=== PATIENT | female | born 1985 | race American Indian/Alaskan Native ===

== ENCOUNTER 2018-04-06 22:52 | Inpatient (IN) | payer MEDICAID ==
[2018-04-06] MEDS ORDERED: Albuterol-Ipratrop 3 mg / 0.5 (3 ml) UD INH STA ×3 (23:00→23:01)
[2018-04-06 23:30] LABS: BASO # 0.1 K/uL (0.0-0.2); BASO % 0.8 % (0.0-2.0); EOS % 0.4 % (0.0-4.0); HEMOGLOBIN 13.1 g/dL (12.0-16.0); LYMPH # 2.4 K/uL (1.0-4.3); LYMPH % 33.9 % (20.0-40.0); MEAN CELL VOLUME 83.7 fl (81.0-99.0); MEAN CORPUSCULAR HEMOGLOBIN 27.7 pg (27.0-31.0); MEAN CORPUSCULAR HGB CONC 33.1 g/dL (33.0-37.0); MEAN PLATELET VOLUME 6.9 fl (7.2-11.7); MONO # 0.1 K/uL (0.0-0.8); MONO % 1.8 % (0.0-10.0); NEUT # 4.4 K/uL (1.8-7.0); NEUT % 63.1 % (50.0-75.0); NRBC % 0.1 % (0.0-0.0); RBC 4.72 Mil/uL (3.80-5.20); RED CELL DISTRIBUTION WIDTH 16.2 % (11.5-14.5)
--- NOTE | 2018-04-06 23:43 | ED PDOC ---
HPI: SOB/CHF/COPD Time Seen by Provider: 04/06/18 23:30 Chief Complaint (Nursing): Respiratory Distress Chief Complaint (Provider): Respiratory Distress History Per: Patient History/Exam Limitations: no limitations Onset/Duration Of Symptoms: Days (x2) Current Symptoms Are (Timing): Still Present Additional Complaint(s): 32 year old female with a past medical history of asthma presents to the ED complaining of cough, productive with clear sputum associated with post-tussive vomiting and chest tightness that acutely worsened today after smelling cleaning fluid nearby, onset two days ago. Patient reports similar symptoms to asthma exacerbation she's had in the past. Denies fever and chills. PMD: Does not recall Past Medical History Reviewed: Historical Data, Nursing Documentation, Vital Signs Vital Signs: Last Vital Signs Temp 97.4 F L 04/09/18 15:51 Pulse 84 04/09/18 15:51 Resp 20 04/09/18 15:51 BP 106/72 04/09/18 15:51 Pulse Ox 98 04/09/18 15:51 - Medical History PMH: Asthma - Surgical History Surgical History: No Surg Hx - Family History Family History: States: Diabetes Other Family History: Cancer - Social History Current smoker - smoking cessation education provided: Yes - Home Medications Home Medications: Ambulatory Orders Medication Instructions Recorded Albuterol 0.083% [Albuterol 0.083% 04/07/18 Inhal Nadine (2.5 mg/3 ml) UD] - Allergies Allergies/Adverse Reactions: Allergies Allergy/AdvReac Type Severity Reaction Status Date / Time No Known Allergies Allergy Verified 04/06/18 22:56 Review of Systems ROS Statement: Except As Marked, All Systems Reviewed And Found Negative (as per HPI) Constitutional: Negative for: Fever, Chills Cardiovascular: Positive for: Chest Pain ("tightness" ) Respiratory: Positive for: Cough (productive with clear sputum ) Gastrointestinal: Positive for: Vomiting (post-tussive) Physical Exam - Reviewed Nursing Documentation Reviewed: Yes Vital Signs Reviewed: Yes - Physical Exam Appears: Positive for: Non-toxic, In Acute Distress Head Exam: Positive for: ATRAUMATIC, NORMOCEPHALIC Skin: Positive for: Warm, Dry Eye Exam: Positive for: EOMI, PERRL ENT: Positive for: Pharynx Is (clear). Negative for: Pharyngeal Erythema, Tonsillar Exudate Neck: Positive for: Painless ROM, Supple Cardiovascular/Chest: Positive for: Regular Rate, Rhythm. Negative for: Murmur Respiratory: Positive for: Accessory Muscle Use, Wheezing (scattered), Respiratory Distress (acute), Other (poor air movement). Negative for: Rales, Rhonchi Gastrointestinal/Abdominal: Positive for: Soft. Negative for: Tenderness Back: Positive for: Normal Inspection. Negative for: Decreased ROM Extremity: Positive for: Normal ROM. Negative for: Deformity Lymphatic: Negative for: Adenopathy Neurologic/Psych: Positive for: Alert. Negative for: Motor/Sensory Deficits - Laboratory Results Result Diagrams: 04/09/18 05:20 04/09/18 05:20 - ECG O2 Sat by Pulse Oximetry: 100 (RA) Pulse Ox Interpretation: Normal Medical Decision Making Medical Decision Making: Time: 2326 Impression: Asthma Exacerbation Differentials include but not limited to bronchitis and pneumonia. Plan: -- EKG -- CMP -- Magnesium -- Phosphorus -- ED Urine Dipstick -- ED Urine -- CBC with differentials -- CXR Portable -- Blood Culture -- Lumber Stacker Driver -- IV Insertion Time: 0000 -- Patient endorsed to Dr. Alcala, pending x-ray and re-evaluation. Scribe Attestation: Documented by Guy Deutsch acting as a scribe for Dr. Brenda Younger. Provider Scribe Attestation: All medical record entries made by the Scribe were at my direction and personally dictated by me. I have reviewed the chart and agree that the record accurately reflects my personal performance of the history, physical exam, medical decision making, and the department course for this patient. I have also personally directed, reviewed, and agree with the discharge instructions and disposition. Disposition - Clinical Impression Clinical Impression: Dyspnea - Patient ED Disposition Is Patient to be Admitted: Transfer of Care - Disposition Disposition: Transfer of Care Disposition Time: 00:00 Condition: FAIR Patient Signed Over To: Ben Alcala
[2018-04-06 23:44] LABS: ALB/GLOB RATIO 1.3 (1.0-2.1); ALBUMIN 4.2 g/dL (3.5-5.0); ALT/SGPT 28 U/L (9-52); AST/SGOT 22 U/L (14-36); BLOOD UREA NITROGEN 8 mg/dl (7-17); GFR AFRICAN-AMERICAN > 60; GFR NON-AFRICAN AMERICAN > 60
--- NOTE | 2018-04-07 00:19 | ED PDOC ---
- Laboratory Results Result Diagrams: 04/06/18 23:27 04/06/18 23:27 - ECG O2 Sat by Pulse Oximetry: 100 (RA) Medical Decision Making Medical Decision Making: Time: 0000 -- Patient endorsed to me by Dr. Younger, pending x-ray and re-evaluation. Time: 201 XR RESULTS FINDINGS: Lungs: Bilateral hazy airspace infiltrates, most confluent and dense in the left mid lung zone and at the right lung base. Pleural space: Unremarkable. No pneumothorax. No significant pleural effusions. Heart: Unremarkable. No cardiomegaly. Mediastinum: Unremarkable. Bones/joints: Unremarkable. Other findings: The patient is large in size.Prominent breast shadows. IMPRESSION: Bilateral hazy airspace infiltrates, compatible with multilobar infectious pneumonia, eg. Clinical correlation and close follow-up suggested. No significant pleural effusions. Thank you for allowing us to participate in the care of your patient. Dictated and Authenticated by: La Nena Nunez MD 04/07/2018 2:02 AM Eastern Time ([place] & [place]) Time:201 --X-ray results showed bilateral infiltrates. FINDINGS: Lungs: Bilateral hazy airspace infiltrates, most confluent and dense in the left mid lung zone and at the right lung base. Pleural space: Unremarkable. No pneumothorax. No significant pleural effusions. Heart: Unremarkable. No cardiomegaly. Mediastinum: Unremarkable. Bones/joints: Unremarkable. Other findings: The patient is large in size.Prominent breast shadows. IMPRESSION: Bilateral hazy airspace infiltrates, compatible with multilobar infectious pneumonia, eg. Clinical correlation and close follow-up suggested. No significant pleural effusions. Thank you for allowing us to participate in the care of your patient. Dictated and Authenticated by: La Nena Nunez MD 04/07/2018 2:02 AM Eastern Time ([place] & [place]) -- Patient will be admitted for community acquired pneumonia. -- Case referred with Dr. Alonso -- Azithromycin and rocephin administered/ -- Condition is fair. Scribe Attestation: Documented by Guy Deutsch acting as a scribe for Dr. Ben Alcala MD. Provider Scribe Attestation: All medical record entries made by the Scribe were at my direction and personally dictated by me. I have reviewed the chart and agree that the record accurately reflects my personal performance of the history, physical exam, medical decision making, and the department course for this patient. I have also personally directed, reviewed, and agree with the discharge instructions and disposition. Disposition Discussed With : Duncan Alonso - Clinical Impression Clinical Impression: Pneumonia - POA Present On Arrival: None - Disposition Disposition: Admitted as In-Patient Disposition Time: 02:02 Condition: FAIR
[2018-04-07] MEDS ORDERED: Azithromycin 500 MG in Sodium Chloride 0.9% 250 ML IVPB STA (01:03)
[2018-04-07] MEDS ORDERED: cefTRIAXone (Rocephin) 1 gm Inj ONE (01:31)
[2018-04-07] MEDS ORDERED: Azithromycin 500 MG IV IVPB ONE ×2 (01:31→02:40)
[2018-04-07] MEDS ORDERED: Sodium Chloride 3% for Inhalation 4 ML VIAL.NEB IH PRN (07:33)
--- NOTE | 2018-04-07 07:36 | RAD ---
HISTORY: sob COMPARISON: No prior. FINDINGS: LUNGS: Bilateral interstitial infiltrates. PLEURA: No significant pleural effusion identified, no pneumothorax apparent. CARDIOVASCULAR: Normal. OSSEOUS STRUCTURES: No significant abnormalities. VISUALIZED UPPER ABDOMEN: Normal. OTHER FINDINGS: None. IMPRESSION: Bilateral interstitial infiltrates.
[2018-04-07] MEDS: Albuterol-Ipratrop 3 mg / 0.5 (3 ml) UD INH SCH ×3 (07:55→19:14)
[2018-04-07] MEDS: Enoxaparin 40 mg Syringe SC SCH (09:00)
[2018-04-07] MEDS ORDERED: Pneumococcal 23-Valent Vaccine IM ONE (09:00)
[2018-04-07] MEDS ORDERED: Enoxaparin 30 mg Syringe SC SCH (09:00)
[2018-04-07] MEDS: Azithromycin 500 MG in Sodium Chloride 0.9% 250 ML IVPB SCH (09:05)
--- NOTE | 2018-04-07 13:04 | CARD ---
APPROVED REPORT EKG Measurement Heart [id number] IN [id number] <Conclusion> Sinus tachycardia Otherwise normal ECG
--- NOTE | 2018-04-07 18:00 | HP ---
CHIEF COMPLAINT: Difficulty breathing. HISTORY OF PRESENT ILLNESS: This is a 32-year-old female, known case of asthma, who was having cough with clear sputum production for few days, which also associated with episodes of vomiting and chest tightness, which got worse yesterday. So the patient was brought to the emergency room and was admitted for further management. REVIEW OF SYSTEMS: More positive for feeling weak, tired, fatigued, malaise, and coughing. Review of systems otherwise is negative for headache, dizziness, syncope, loss of consciousness, nausea, vomiting, diarrhea, constipation, any new joint or extremity pain. Review of systems for all other organ system is unremarkable. PAST MEDICAL HISTORY: Significant for asthma. PAST SURGICAL HISTORY: Unremarkable. PERSONAL HISTORY: The patient is nondrinker. No substance abuse. The patient is a smoker. MEDICATIONS: The patient is not on any medication. ALLERGIES: THE PATIENT IS NOT ALLERGIC TO ANY MEDICATION. FAMILY HISTORY: Noncontributory. PHYSICAL EXAMINATION: GENERAL: Well-built, well-nourished, overweight 32-year-old female in no acute distress. VITAL SIGNS: Temperature 99.2, pulse 89, respirations 19, blood pressure 98/61, and saturation 96%. HEENT: Pupils reacting to light. No JVD. No thyromegaly. No lymphadenopathy. No nystagmus. Normocephalic and atraumatic skull. HEART: S1, S2, normal and regular. No significant murmur, gallop, or rub is heard. LUNGS: Shows bilateral posterior lower crepitations. Occasional rhonchi. ABDOMEN: Soft, nontender. No organomegaly. No fluid. Bowel sounds are plus and normal. EXTREMITIES: No edema. No calf swelling. No tenderness. No acute ischemia. 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 DIAGNOSTIC DATA: Available diagnostic data reviewed. Chest x-ray is consistent with pneumonia. EKG shows tachycardia. WBC 7, hemoglobin 13.1, hematocrit 39.5, and platelets 402. Sodium 140, potassium 2.5, chloride 105, bicarb 22, BUN 8, and creatinine 0.6. SMA-12 is unremarkable. HIV test is negative. Flu test is negative. IMPRESSION: Bilateral pneumonia, bronchial asthma. PLAN: As ordered. Case and plan discussed with the patient. Duncan Alonso MD [facility] # [id number]
[2018-04-07] MEDS ORDERED: Albuterol-Ipratrop 3 mg / 0.5 (3 ml) UD INH PRN (22:57)
[2018-04-08] MEDS: Albuterol-Ipratrop 3 mg / 0.5 (3 ml) UD INH SCH ×4 (01:21→19:05)
[2018-04-08] MEDS ORDERED: guaiFENesin DM 200 mg-20 mg/10 ml UD PO ONE (01:39)
[2018-04-08 07:19] LABS: HEMOGLOBIN 11.1 g/dL (12.0-16.0); MEAN CELL VOLUME 83.2 fl (81.0-99.0); MEAN CORPUSCULAR HEMOGLOBIN 27.4 pg (27.0-31.0); MEAN CORPUSCULAR HGB CONC 32.9 g/dL (33.0-37.0); RBC 4.07 Mil/uL (3.80-5.20); RED CELL DISTRIBUTION WIDTH 16.5 % (11.5-14.5); WHITE BLOOD COUNT 14.6 K/uL (4.8-10.8)
[2018-04-08 07:55] LABS: ALB/GLOB RATIO 1.1 (1.0-2.1); ALBUMIN 3.2 g/dL (3.5-5.0); ALT/SGPT 30 U/L (9-52); AST/SGOT 30 U/L (14-36); BLOOD UREA NITROGEN 12 mg/dl (7-17); CALCIUM 8.7 mg/dL (8.4-10.2); GFR AFRICAN-AMERICAN > 60; GFR NON-AFRICAN AMERICAN > 60
[2018-04-08] MEDS: Azithromycin 500 MG in Sodium Chloride 0.9% 250 ML IVPB SCH (09:21)
[2018-04-08] MEDS: Enoxaparin 40 mg Syringe SC SCH (09:22)
[2018-04-08] MEDS: guaiFENesin DM 200 mg-20 mg/10 ml UD PO PRN (14:56)
--- NOTE | 2018-04-08 15:46 | PN ---
DATE: 04/08/2018 SUBJECTIVE: The patient is seen and examined. Interim events noted. The patient remains in regular medical floor. The patient complains of cough. No chest pain or shortness of breath. PHYSICAL EXAMINATION: GENERAL: The patient is in no acute distress. VITAL SIGNS: Stable. HEART: S1 and S2, normal and regular. LUNGS: Good bilateral air exchange. Occasional crepitations, partial clearing, coughing. ABDOMEN: Soft and nontender. EXTREMITIES: No edema. No calf swelling. No tenderness. No acute ischemia. SANITOR: Essentially unchanged. DIAGNOSTIC DATA: Available diagnostic data reviewed. ASSESSMENT AND PLAN: Overall, the patient's general medical condition is stable. Plan as ordered. Duncan Alonso MD
[2018-04-09] MEDS: Albuterol-Ipratrop 3 mg / 0.5 (3 ml) UD INH SCH ×4 (01:14→19:36)
[2018-04-09 06:27] LABS: HEMOGLOBIN 11.6 g/dL (12.0-16.0); MEAN CELL VOLUME 82.3 fl (81.0-99.0); MEAN CORPUSCULAR HEMOGLOBIN 27.7 pg (27.0-31.0); MEAN CORPUSCULAR HGB CONC 33.7 g/dL (33.0-37.0); RBC 4.2 Mil/uL (3.80-5.20); RED CELL DISTRIBUTION WIDTH 16.3 % (11.5-14.5); WHITE BLOOD COUNT 9.5 K/uL (4.8-10.8)
[2018-04-09 07:02] LABS: ALB/GLOB RATIO 0.9 (1.0-2.1); ALBUMIN 3.2 g/dL (3.5-5.0); ALT/SGPT 28 U/L (9-52); AST/SGOT 17 U/L (14-36); BLOOD UREA NITROGEN 9 mg/dl (7-17); CALCIUM 8.6 mg/dL (8.4-10.2); GFR AFRICAN-AMERICAN > 60; GFR NON-AFRICAN AMERICAN > 60
[2018-04-09] MEDS: guaiFENesin DM 200 mg-20 mg/10 ml UD PO PRN (07:25)
[2018-04-09] MEDS: Enoxaparin 40 mg Syringe SC SCH (10:53)
[2018-04-09] MEDS: Azithromycin 500 MG in Sodium Chloride 0.9% 250 ML IVPB SCH (11:24)
--- NOTE | 2018-04-09 13:13 | RAD ---
HISTORY: f/u pna COMPARISON: 04/07/2018 TECHNIQUE: Chest PA and lateral FINDINGS: LUNGS: Previous identified bilateral pulmonary infiltrates have resolved. No pulmonary infiltrate. PLEURA: No significant pleural effusion identified. No pneumothorax apparent. CARDIOVASCULAR: Normal. OSSEOUS STRUCTURES: No significant abnormalities. VISUALIZED UPPER ABDOMEN: Normal. OTHER FINDINGS: None. IMPRESSION: No active disease.
--- NOTE | 2018-04-09 13:18 | PN ---
DATE: 04/09/2018 SUBJECTIVE: The patient is seen and examined. Interim events noted. The patient complains of occasional cough. Also complains of possibility with , which she developed today. No chest pain. No shortness of breath. PHYSICAL EXAMINATION: GENERAL: The patient is in no acute distress. VITAL SIGNS: Stable. HEART: S1 and S1, normal and regular. LUNGS: Good bilateral air exchange. ABDOMEN: Soft, nontender. EXTREMITIES: No edema. No calf swelling. No tenderness. No acute ischemia. 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 DIAGNOSTIC DATA: Available diagnostic data reviewed. ASSESSMENT AND PLAN: Overall, the patient's general medical condition is stable. Plan as ordered. Duncan Alonso MD
--- NOTE | 2018-04-09 14:28 | CP.PCM.PCO ---
Assessment & Plan - Assessment and Plan (Free Text) Assessment: 32 yr old F admitted with pneumonia pt. will require one week of Rocephin 1gm ivpb daily and Zithromax 500 mg iv daily
[2018-04-09 15:52] VITALS: BP 106/72; PULSE 84; RESP 20; TEMP 97.4
[2018-04-09 16:00] VITALS: O2SAT 100
== END 2018-04-09 21:18 | DRG 90 ==
LOC: H.ER 22:52 → H.ERHOLD 04-07 01:08 → H.MEDSURG1 04-07 03:35
PROVIDERS: ADMIT Internal Medicine; ATTEND Internal Medicine
DX: J18.9 Pneumonia, unspecified organism (principal); J45.901 Unspecified asthma with (acute) exacerbation; F17.200 Nicotine dependence, unspecified, uncomplicated

== ENCOUNTER 2018-04-09 21:36 | Inpatient (IN) | payer MEDICAID ==
[2018-04-09 21:42] VITALS: BMI 28.8
[2018-04-09 22:15] VITALS: RESP 20
[2018-04-09] MEDS: guaiFENesin DM 200 mg-20 mg/10 ml UD PO PRN (22:39)
[2018-04-10] MEDS: Albuterol-Ipratrop 3 mg / 0.5 (3 ml) UD INH SCH ×4 (01:00→19:39)
[2018-04-10] MEDS: Azithromycin 500 MG in Sodium Chloride 0.9% 250 ML IVPB SCH (04:13)
[2018-04-10] MEDS: guaiFENesin DM 200 mg-20 mg/10 ml UD PO PRN (08:18)
[2018-04-10] MEDS: Enoxaparin 40 mg Syringe SC SCH ×2 (08:20→08:23)
--- NOTE | 2018-04-10 16:30 | CP.PCM.HP ---
<Stacey Laogs - Last Filed: 04/10/18 19:37> History of Present Illness - History of Present Illness History of Present Illness: 32 yo F with PMH asthma who was recently admitted to medical floor for pneumonia , now in TCU for IV antibiotics. Pt was brought to ED with complaint of cough with clear sputum production for a few days which was also associated with episodes of vomiting and chest tightness. Review of systems was positive for weakness, fatigue, and cough. Was found to have bilateral pneumonia as seen on CXR. Started on Rocephin 1gm IVPB daily and Zithromax 500 mg IV daily, which she is now continuing. PMH: asthma Past Surg Hx: none Social hx: denies x3 Meds: states she has albuterol inhaler she uses 2x a week Allergies: NKDA Present on Admission - Present on Admission Any Indicators Present on Admission: No Review of Systems - Review of Systems All systems: reviewed and no additional remarkable complaints except - Respiratory Respiratory: Cough Past Patient History - Past Medical History & Family History Past Medical History?: Yes - Past Social History Smoking Status: Former Smoker - CARDIAC Hx Cardiac Disorders: No - PULMONARY Hx Asthma: Yes - NEUROLOGICAL Hx Neurological Disorder: No - HEENT Hx HEENT Problems: No - RENAL Hx Chronic Kidney Disease: No - ENDOCRINE/METABOLIC Hx Endocrine Disorders: No - HEMATOLOGICAL/ONCOLOGICAL Hx Blood Disorders: No - INTEGUMENTARY Hx Dermatological Problems: No - MUSCULOSKELETAL/RHEUMATOLOGICAL Hx Falls: No - GASTROINTESTINAL Hx Gastrointestinal Disorders: No - GENITOURINARY/GYNECOLOGICAL Hx Genitourinary Disorders: No - PSYCHIATRIC Hx Substance Use: Yes - SURGICAL HISTORY Hx Surgeries: Yes Other/Comment: C/S c/section - ANESTHESIA Hx Anesthesia: Yes Hx Anesthesia Reactions: No Hx Malignant Hyperthermia: No Has any member of the family had a problem w/ anesthesia?: No Meds Allergies/Adverse Reactions: Allergies Allergy/AdvReac Type Severity Reaction Status Date / Time No Known Allergies Allergy Verified 04/06/18 22:56 Physical Exam - Head Exam Head Exam: NORMAL INSPECTION - Eye Exam Eye Exam: Normal appearance - ENT Exam ENT Exam: Mucous Membranes Moist - Respiratory Exam Respiratory Exam: NORMAL BREATHING PATTERN. absent: Respiratory Distress Additional comments: good air entry, some diffuse coarse sounds - Cardiovascular Exam Cardiovascular Exam: REGULAR RHYTHM, +S1, +S2 - GI/Abdominal Exam GI & Abdominal Exam: Normal Bowel Sounds, Soft - Extremities Exam Extremities exam: Positive for: normal inspection. Negative for: calf tenderness - Neurological Exam Neurological exam: Alert, Oriented x3 - Skin Skin Exam: Dry, Normal Color, Warm Results - Vital Signs Recent Vital Signs: Last Vital Signs Temp 98.4 F 04/10/18 16:23 Pulse 74 04/10/18 16:23 Resp 20 04/10/18 16:23 BP 103/57 L 04/10/18 16:23 Pulse Ox 99 04/10/18 16:23 Assessment & Plan - Assessment and Plan (Free Text) Assessment: 32 yo F with PMH asthma, with bilateral pneumonia as seen on CXR. Admitted to TCU for continued IV antibiotics. Plan: - Continue present management - Duonebs Q6hrs - Rocephin and Zithromax for 1 week - Monitor for acute changes in resp status, fever, general condition - PT/OT - Lovenox for DVT prophylaxis <Alonso,Duncan K - Last Filed: 04/11/18 10:22> Results - Vital Signs Recent Vital Signs: Last Vital Signs Temp 97.7 F 04/11/18 07:55 Pulse 58 L 04/11/18 07:55 Resp 20 04/11/18 07:55 BP 102/50 L 04/11/18 07:55 Pulse Ox 100 04/11/18 07:55 Assessment & Plan - Assessment and Plan (Free Text) Plan: Patient was personally seen and examined by me in rounds with residents. Available labs and diagnostic data reviewed. Case, Patient's condition and management plan discussed with residents in rounds. Agree with resident's progress note. Plan: As ordered.
[2018-04-11] MEDS: Albuterol-Ipratrop 3 mg / 0.5 (3 ml) UD INH SCH ×4 (02:07→19:34)
[2018-04-11] MEDS: Azithromycin 500 MG in Sodium Chloride 0.9% 250 ML IVPB SCH (04:39)
[2018-04-11] MEDS: Enoxaparin 40 mg Syringe SC SCH (08:27)
[2018-04-11] MEDS: guaiFENesin DM 200 mg-20 mg/10 ml UD PO PRN (21:37)
[2018-04-12] MEDS: Albuterol-Ipratrop 3 mg / 0.5 (3 ml) UD INH SCH ×4 (01:13→19:12)
--- NOTE | 2018-04-12 04:38 | PN ---
DATE: 04/11/2018 SUBJECTIVE: The patient seen and examined. Interim events noted. The patient remains in transitional care unit, on IV antibiotics. Feels better. Complains of menstrual cramping Motrin. No chest pain. No shortness of breath or coughing. PHYSICAL EXAMINATION: GENERAL: The patient is no acute distress. VITAL SIGNS: Stable. HEART: S1 and S2, normal and regular. LUNGS: Good bilateral air exchange. ABDOMEN: Soft and nontender. EXTREMITIES: No edema. No calf swelling. No tenderness. No acute ischemia. 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 DIAGNOSTIC DATA: Available diagnostic data reviewed. ASSESSMENT AND PLAN: Overall, the patient's general medical condition is stable. The patient also is not having any withdrawal symptoms of PCP. The patient was also counseled to stop using PCP. Plan as ordered. Duncan Alonso MD
[2018-04-12] MEDS: Azithromycin 500 MG in Sodium Chloride 0.9% 250 ML IVPB SCH (05:18)
[2018-04-12] MEDS: Enoxaparin 40 mg Syringe SC SCH (08:29)
--- NOTE | 2018-04-12 12:41 | CP.PCM.PN ---
<Stacey Lagos - Last Filed: 04/12/18 12:53> Subjective - Date & Time of Evaluation Date of Evaluation: 04/12/18 Time of Evaluation: 07:50 - Subjective Subjective: Pt seen and examined this am with Dr. Alonso. No acute events overnight, reports that she feels better. Tolerating diet, breathing well. Objective - Vital Signs/Intake and Output Vital Signs (last 24 hours): Temp Pulse Resp BP Pulse Ox 97.7 F 71 20 97/50 L 100 04/12/18 09:21 04/12/18 09:21 04/12/18 09:21 04/12/18 09:21 04/12/18 09:21 - Medications Medications: Current Medications Albuterol/Ipratropium (Duoneb 3 Mg/0.5 Mg (3 Ml) Ud) 3 ml INH RQ6 REY Last Admin: 04/12/18 07:23 Dose: Not Given Enoxaparin Sodium (Lovenox) 40 mg SC DAILY REY PRN Reason: Protocol Last Admin: 04/12/18 08:29 Dose: Not Given Guaifenesin/Dextromethorphan (Robitussin Dm) 10 ml PO Q6 PRN PRN Reason: Cough Last Admin: 04/11/18 21:37 Dose: 10 ml Azithromycin 500 mg/ Sodium (Chloride) 250 mls @ 250 mls/hr IVPB DAILY@0500 REY PRN Reason: Protocol Last Admin: 04/12/18 05:18 Dose: 250 mls/hr Ceftriaxone Sodium 1 gm/ (Sodium Chloride) 100 mls @ 100 mls/hr IVPB DAILY REY PRN Reason: Protocol Last Admin: 04/12/18 08:29 Dose: 100 mls/hr Ibuprofen (Motrin Tab) 600 mg PO Q8 PRN PRN Reason: Pain, moderate (4-7) Last Admin: 04/12/18 08:28 Dose: 600 mg Nicotine (Nicoderm Cq) 1 patch TD DAILY [facility] Last Admin: 04/12/18 08:27 Dose: 1 patch - Constitutional Appears: No Acute Distress - Head Exam Head Exam: NORMAL INSPECTION - Eye Exam Eye Exam: Normal appearance - ENT Exam ENT Exam: Mucous Membranes Moist - Respiratory Exam Respiratory Exam: Clear to Ausculation Bilateral, NORMAL BREATHING PATTERN. absent: Respiratory Distress - Cardiovascular Exam Cardiovascular Exam: REGULAR RHYTHM - GI/Abdominal Exam GI & Abdominal Exam: Soft, Normal Bowel Sounds - Extremities Exam Extremities Exam: Normal Inspection - Neurological Exam Neurological Exam: Alert, Awake - Skin Skin Exam: Dry, Normal Color Assessment and Plan - Assessment and Plan (Free Text) Assessment: 32 yo F with PMH asthma, with bilateral pneumonia as seen on CXR. Admitted to TCU for continued IV antibiotics; today is day 6/7. Plan: - Continue present management - Duonebs Q6hrs - Rocephin and Zithromax for 1 week; tomorrow is last dose - Monitor for acute changes in resp status, fever, general condition - PT/OT - Lovenox for DVT prophylaxis <Alonso,Duncan K - Last Filed: 04/12/18 20:37> Objective - Vital Signs/Intake and Output Vital Signs (last 24 hours): Temp Pulse Resp BP Pulse Ox 98.4 F 78 20 103/56 L 99 04/12/18 16:22 04/12/18 16:22 04/12/18 16:22 04/12/18 16:22 04/12/18 16:22 - Medications Medications: Current Medications Albuterol/Ipratropium (Duoneb 3 Mg/0.5 Mg (3 Ml) Ud) 3 ml INH RQ6 REY Last Admin: 04/12/18 19:12 Dose: Not Given Enoxaparin Sodium (Lovenox) 40 mg SC DAILY REY PRN Reason: Protocol Last Admin: 04/12/18 08:29 Dose: Not Given Guaifenesin/Dextromethorphan (Robitussin Dm) 10 ml PO Q6 PRN PRN Reason: Cough Last Admin: 04/11/18 21:37 Dose: 10 ml Azithromycin 500 mg/ Sodium (Chloride) 250 mls @ 250 mls/hr IVPB DAILY@0500 REY PRN Reason: Protocol Last Admin: 04/12/18 05:18 Dose: 250 mls/hr Ceftriaxone Sodium 1 gm/ (Sodium Chloride) 100 mls @ 100 mls/hr IVPB DAILY REY PRN Reason: Protocol Last Admin: 04/12/18 08:29 Dose: 100 mls/hr Ibuprofen (Motrin Tab) 600 mg PO Q8 PRN PRN Reason: Pain, moderate (4-7) Last Admin: 04/12/18 08:28 Dose: 600 mg Nicotine (Nicoderm Cq) 1 patch TD DAILY REY Last Admin: 04/12/18 08:27 Dose: 1 patch Assessment and Plan - Assessment and Plan (Free Text) Plan: Patient was personally seen and examined by me in rounds with residents. Available labs and diagnostic data reviewed. Case, Patient's condition and management plan discussed with residents in rounds. Agree with resident's progress note. Plan: As ordered.
[2018-04-12 16:23] VITALS: O2SAT 99
[2018-04-12 20:43] VITALS: TEMP 98.1
[2018-04-13] MEDS: Albuterol-Ipratrop 3 mg / 0.5 (3 ml) UD INH SCH ×2 (02:00→08:34)
[2018-04-13] MEDS: Azithromycin 500 MG in Sodium Chloride 0.9% 250 ML IVPB SCH (04:27)
[2018-04-13] MEDS: Enoxaparin 40 mg Syringe SC SCH (08:23)
[2018-04-13 08:48] VITALS: BP 103/57; PULSE 56
--- NOTE | 2018-04-13 12:28 | PN ---
DATE: 04/13/2018 SUBJECTIVE: The patient is seen and examined. Interim events noted. The patient remains in transitional care unit. The patient feels okay. No complaint. No chest pain. No shortness of breath. No withdrawal symptoms. PHYSICAL EXAMINATION: GENERAL: The patient is in no acute distress. VITAL SIGNS: Stable. HEART: S1 and S2, normal and regular. LUNGS: Good bilateral air exchange. ABDOMEN: Soft and nontender. EXTREMITIES: No edema. No calf swelling. No tenderness. No acute ischemia. 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 DIAGNOSTIC DATA: Available diagnostic data reviewed. ASSESSMENT AND PLAN: Overall, the patient's general medical condition is stable. The patient needs possible discharge home today. Plan as ordered. Case and plan discussed with the patient. Duncan Alonso MD
--- NOTE | 2018-04-14 04:12 | DS ---
This is 32-year-old female, who was admitted to medical floor with pneumonia and was transferred to Transitional Care Unit for completion of treatment. The patient was admitted to Transitional Care Unit. IV antibiotics were continued and course was completed. The patient's transitional care unit course was essentially unremarkable. The patient tolerated to treatment very well. Became medically stable and is being discharged to home today to be followed up with primary care physician within 1 to 2 weeks. Duncan Alonso MD
== END 2018-04-13 13:00 | disposition home or self-care (01) | DRG 89 ==
LOC: H.TCU 21:42
PROVIDERS: ADMIT Internal Medicine; ATTEND Internal Medicine
PROC: 5A0945Z Assistance with Respiratory Ventilation, 24-96 Consecutive Hours (ICD-10-PCS; principal; 2018-04-10)
DX: J18.9 Pneumonia, unspecified organism (principal); F16.90 Hallucinogen use, unspecified, uncomplicated; J45.909 Unspecified asthma, uncomplicated; Z87.891 Personal history of nicotine dependence